=== PATIENT | female | born 1940 | race Caucasian/White ===

== ENCOUNTER 2017-04-06 11:42 | Day surgery (SDC) | payer MEDICARE, BC ==
[2017-04-06 12:21] VITALS: O2SAT 94
[2017-04-06] MEDS ORDERED: TRIAMCINOLONE ACETONIDE 40 MG/ML SUS ONE (13:12)
[2017-04-06] MEDS ORDERED: LIDOCAINE HCL 1% MPF SOL ONE (13:14)
[2017-04-06 15:13] VITALS: BP 129/59; PULSE 79; RESP 18; TEMP 97.4
== END 2017-04-06 15:34 | disposition home or self-care (01) | DRG 552 ==
LOC: SURG 11:42
PROVIDERS: ATTEND Nurse Anesthetist, Certified Registered
DX: M48.06 Spinal stenosis, lumbar region (principal)
CPT/HCPCS: 36415; 85610; J2001; J3300

== ENCOUNTER 2017-04-08 22:15 | Emergency (ER) | payer MEDICARE, BC ==
[2017-04-08] MEDS ORDERED: PREDNISONE 20 MG TAB PO ONE (22:42)
[2017-04-08] MEDS ORDERED: MORPHINE SULFATE 10 MG/ML SOL IM ONE (22:43)
[2017-04-08] MEDS ORDERED: PREDNISONE 20 MG TAB ONE (22:44)
[2017-04-08] MEDS ORDERED: MORPHINE SULFATE 10 MG/ML SOL ONE (22:44)
[2017-04-08 23:06] VITALS: TEMP 97; O2SAT 97
[2017-04-08] MEDS ORDERED: LIDOCAINE HCL 2% MPF SOL INJ ONE (23:19)
[2017-04-08] MEDS ORDERED: LIDOCAINE HCL 2% MPF SOL ONE (23:21)
[2017-04-09 00:06] VITALS: BP 134/75; PULSE 62; RESP 16
== END 2017-04-09 | disposition home or self-care (01) | DRG 552 ==
LOC: ED 22:15
DX: M54.42 Lumbago with sciatica, left side (principal)
CPT/HCPCS: 96372; 99283; J2270